=== PATIENT | female | born 1970 | race Caucasian/White ===

== ENCOUNTER 2023-08-14 08:43 | Day surgery (SDC) | payer OTHER ==
[~2023-08-14] VITALS: Ht 152.4 cm; Wt 80.7 kg
[2023-08-14] MEDS ORDERED: LIDOCAINE 2% 100 MG/5 ML UJET TP ONE (12:18)
[2023-08-14] MEDS ORDERED: MIDAZOLAM 5 MG/5 ML VIAL ONE (12:18)
[2023-08-14] MEDS ORDERED: fentaNYL citrate 0.05 MG/ML VIAL ONE (12:18)
[2023-08-14] MEDS: fentaNYL citrate 0.05 MG/ML VIAL IVP ONE (12:24)
== END 2023-08-14 13:21 | disposition home or self-care (01) ==
LOC: MDS 08:43 → MMU 10:17 → MDS 13:21
PROVIDERS: ATTEND Internal Medicine Gastroenterology
DX: K59.00 Constipation, unspecified (principal); K64.1 Second degree hemorrhoids; K57.30 Diverticulosis of large intestine without perforation or abscess without bleeding; K64.4 Residual hemorrhoidal skin tags; I10 Essential (primary) hypertension; E78.00 Pure hypercholesterolemia, unspecified; E11.9 Type 2 diabetes mellitus without complications; Z98.51 Tubal ligation status; Z88.0 Allergy status to penicillin; Z79.899 Other long term (current) drug therapy; Z98.890 Other specified postprocedural states
CPT/HCPCS: 45378; 82948; J3010; J2250